=== PATIENT | female | born 1950 | race Caucasian/White ===

== ENCOUNTER → 2023-06-23 | Day surgery (SDC) | payer OTHER, MEDICARE ==
[2023-06-18 10:33] VITALS: BMI 22.6
[~2023-06-23] MED LIST: ACETAMINOPHEN 325 MG TABLET (FP) PO PRN; ACETAMINOPHEN INJECTION 100 ML IVPB ONE; BACITRACIN ZINC 15 GM TUBE TOPICAL OINTMENT ONE; DEXAMETHASONE SOD PHOSPHATE 4 MG/1 ML VIAL ONE; FENTANYL CITRATE/PF 50 MCG/ML VIAL ONE; KETOROLAC TROMETHAMINE 30 MG/1 ML VIAL ONE; LACTATED RINGERS SOLUTION 1,000 ML IV SCH; LIDOCAINE HCL 1%, 10 MG/ML (20ML VIAL) ONE; MIDAZOLAM HCL 2 MG/2 ML SINGLE DOSE VIAL ONE; ONDANSETRON 4 MG/2 ML VIAL IVPUSH PRN; ONDANSETRON 4 MG/2 ML VIAL ONE; PROPOFOL 20 ML ONE; oxyCODONE HCL 5 MG TABLET PO PRN
[2023-06-23] MEDS: ceFAZolin SODIUM 1 GM VIAL IVPB ONE (09:38)
[2023-06-23] MEDS: LIDOCAINE HCL 1%, 10 MG/ML (20ML VIAL) INF ONE (09:42)
[2023-06-23] MEDS: BACITRACIN ZINC 15 GM TUBE TOPICAL OINTMENT TP ONE (10:28)
[2023-06-23] MEDS: ACETAMINOPHEN 1000 MG/100 ML BAG IVPB ONE (10:55)
[2023-06-23 12:11] VITALS: RESP 18
[2023-06-23 12:48] VITALS: BP 149/68; PULSE 63; TEMP 98.4
== END | disposition home or self-care (01) ==
LOC: JASU-SURG 03:49
PROVIDERS: ATTEND Surgery
PROC: 0HBU0ZZ Excision of Left Breast, Open Approach (ICD-10-PCS; principal; 2023-06-23 09:00)
DX: D05.12 Intraductal carcinoma in situ of left breast (principal); D24.2 Benign neoplasm of left breast
CPT/HCPCS: 19281; 19282; 76098-TC-FY; 88307-TC; 88341-TC; 88342-TC; 94760; A4648; J0131